=== PATIENT | female | born 2000 | race Caucasian/White ===

== ENCOUNTER 2024-03-21 14:55 | Emergency (ER) | payer OTHER ==
--- OUTSIDE RECORDS SUMMARY | 2024-03-21 14:58 | XMS REPORT | Continuity of Care Document ---
Author Name Unknown Address [address] [facility] [address] [place] [address] [facility] Address [address] [facility] [address] [place] [address] Care Team Providers Care Journeyman Pipe Fitter Name Role Phone HALEY STEPHENS Primary Care Physician SOLOMON Martinez Attending Clinician SOLOMON Flores Attending Clinician HALEY Morris Attending Clinician Unavailable SERGIO CHEATHAM Attending Clinician UnavailHaley Fernandez Attending Clinician [phone] Doctor Unassigned, [facility] Attending Clinician U Carmelo Nguyen Attending Clinician Unavailable ANIA GUILLEN Attending Clinician Ania Reno Attending Clinician + Sergio Taylor Attending Clinician Doctor Unassigned, [facility] Attending Clinician U Haley Briec Attending Clinician [phone] EDEL SMITH Attending Clinician Unavailable Edel Dickey Attending Clinician [phone] Carmelo Padilla Attending Clinician Unavailable Kelly Guadarrama Attending Clinician Unavailable Mor Abad Attending Clinician Unavailable Payers Payer Name Policy Type Policy Number Effective Date Expirati on Date Source UMR [id number] 2023 00:00:00 [facility] [id number] 2022 00:00:00 Problems Condition Name Condition Details Condition Category Status Onset Date Resolution Date Last Treatment Date Treating Clinician Comments Source Rhinorrhea Rhinorrhea Disease Active 2022-06 0-06 00:00: 00 [facility] Environmen remedios allergies Environmen remedios allergies Disease Active 2022-06 0-06 00:00: 00 [facility] Acute cough Acute cough Disease Active 2022-06 0-06 00:00: 00 [facility] Acute cough Acute cough Disease Active 2022-06 0-06 00:00: 00 [facility] Hypothyroi dism due to Ramirez' s thyroiditi s Hypothyroi dism due to Ramirez' s thyroiditi s Disease Active 3-16 00:00: 00 [facility] Anxiety with depression Anxiety with depression Disease Active 2- 00:00: 00 [facility] Problem Condition [facility] Allergies, Adverse Reactions, Alerts Allergy Name Allergy Type Status Severity Reaction(s) Onset Date Inactive Date Treating Clinician Comments Source NO KNOWN ALLERGIE S Drug Class Active [facility] Social History Social Habit Start Date Stop Date Quantity Comments Source [facility] of tobacco use Cigarette Smoker [facility] History of Social function 2024-01-29 00:00:00 2024-01-29 00:00:00 [facility] Tobacco use and exposure 2024-01-29 00:00:00 2024-01-29 00:00:00 Smokeless tobacco non-user [facility] Alcoholic beverage intake 2024-01-29 00:00:00 2024-01-29 00:00:00 Current drinker of alcohol (finding) [facility] Alcohol intake 2022-08-23 00:00:00 2022-08-23 00:00:00 Current drinker of alcohol (finding) [facility] Exposure to SARS-CoV-2 (event) 2022-08-07 00:00:00 2022-08-17 10:27:00 Not sure [facility] Tobacco Comment 2022-07-19 00:00:00 2022-07-19 00:00:00 Vaping daily [facility] Alcohol Comment 2022-07-19 00:00:00 2022-07-19 00:00:00 on holidays [facility] Sex assigned at 2001 00:00:00 2000 00:00:00 [facility] Smoking Status Start Date Stop Date Source Tobacco smoking consumption unknown [facility] Never smoked tobacco [facility] Occasional tobacco smoker 2023-12-05 00:00:00 [facility] Smokes tobacco daily 2022-07-19 00:00:00 [facility] Medications Ordered Medication Name Filled Medication Name Start Date Stop Date Current Medication? Ordering Clinician Indication Dosage Frequency Signature (SIG) Comments Components Source levothyroxi ne 50 mcg tablet 01-29 00:00: 00 Yes [id number] 50ug Take 1 tablet by mouth every morning. [facility] busPIRone 5 mg tablet 01-28 00:00: 00 Yes [id number] 5mg Take 1 tablet by mouth 2 (two) times daily as needed (anxiety). [facility] etonogestre L (NEXPLANON) 68 mg implant 12-04 08:47: 05 01-28 00:00 :00 No 68mg 68 mg by Subdermal route once now. [facility] SERTraline 50 mg tablet 08-14 00:00: 00 01-28 00:00 :00 No [id number] 50mg Take 1 tablet by mouth at bedtime. [facility] levothyroxi ne 50 mcg tablet 08-14 00:00: 00 01-28 00:00 :00 No [id number] 50ug TAKE ONE (1) TABLET(S) BY MOUTH EVERY MORNING. [facility] levothyroxi ne 50 mcg tablet 2022-06 00:00: 00 08-14 00:00 :00 No [id number] 50ug TAKE ONE (1) TABLET(S) BY MOUTH EVERY MORNING. [facility] methylPREDN ISolone acetate (DEPO-MEDRO L) injection 80 mg 2022-06 0- 20:45: 00 03-15 20:02 :00 No [id number] 80mg [facility] cetirizine (ZYRTEC) 10 mg tablet 2022-06 0-06 00:00: 00 Yes [id number] 10mg Take 1 tablet by mouth in the morning. [facility] benzonatate 200 mg capsule 2022-06 0-06 00:00: 00 03-23 04:59 :00 No [id number] 200mg Take 1 capsule by mouth 3 (three) times daily as needed for Cough for up to 7 days. [facility] busPIRone 5 mg tablet 08-17 00:00: 00 Yes [id number] 5mg Take 1 tablet by mouth 2 (two) times daily as needed (anxiety). [facility] SERTraline (ZOLOFT) 50 mg tablet 08-17 00:00: 00 08-14 00:00 :00 No [id number] 50mg Take 1 tablet by mouth in the morning. Take 1/2 tab po daily x 1 week, then increase to 1 tab po daily [facility] levothyroxi ne 50 mcg tablet 08-17 00:00: 00 06-04 00:00 :00 No [id number] 50ug Take 1 tablet by mouth every morning. [facility] etonogestre L (NEXPLANON) 68 mg implant 07-19 13:49: 01 Yes 68mg 68 mg by Subdermal route once now. [facility] SERTraline (ZOLOFT) 50 mg tablet 07-19 00:00: 00 08-17 00:00 :00 No [id number] Take 1/2 tab po daily x 1 week, then increase to 1 tab po daily [facility] busPIRone 5 mg tablet 07-19 00:00: 00 08-17 00:00 :00 No [id number] 5mg Take 1 tablet by mouth 2 (two) times daily as needed (anxiety). [facility] Immunizations Ordered Immunization Name Filled Immunization Name Date Status Comments Source HPV9 2019-01-05 00:00:00 Completed Meningococcal Polysaccharide (groups A, C, Y and W-135) conjugate vaccine (MCV4P) 2018-10-22 00:00:00 Completed Influenza Virus Vaccine Quad .5 mL IM 6+ MO (FLUZONE/FLULAVAL/FL UARIX) 2018-04-18 00:00:00 Completed Influenza Virus Vaccine Quad IM Multi-dose 6+ MO 2017-05-03 00:00:00 Completed HPV 2014-01-20 00:00:00 Completed Meningococcal Vaccine 2014-01-20 00:00:00 Completed TDAP 2014-01-20 00:00:00 Completed Varicella (varivax)(chicken pox) 2014-01-20 00:00:00 Completed DTaP, Unspecified Formulation 2006-02-26 00:00:00 Completed HEPATITIS A 2006-02-26 00:00:00 Completed MMR 2006-02-26 00:00:00 Completed IPV 2006-02-26 00:00:00 Completed HEPATITIS A 2005-03-28 00:00:00 Completed DTaP, Unspecified Formulation 2003-03-19 00:00:00 Completed HIB 4 Dose Schedule 2003-03-19 00:00:00 Completed Pneumococcal 7 Conjugate, PCV7 (Prevnar7) 2003-03-19 00:00:00 Completed MMR 2003-03-19 00:00:00 Completed Varicella (varivax)(chicken pox) 2003-03-19 00:00:00 Completed Pneumococcal 7 Conjugate, PCV7 (Prevnar7) 2002-10-27 00:00:00 Completed DTaP, Unspecified Formulation 2002-07-17 00:00:00 Completed [facility] Hep B, Adol or Pedi Dosage 2002-07-17 00:00:00 Completed HIB 4 Dose Schedule 2002-07-17 00:00:00 Completed Pneumococcal 7 Conjugate, PCV7 (Prevnar7) 2002-07-17 00:00:00 Completed IPV 2002-07-17 00:00:00 Completed DTaP, Unspecified Formulation 2002-05-21 00:00:00 Completed HIB 4 Dose Schedule 2002-05-21 00:00:00 Completed Pneumococcal 7 Conjugate, PCV7 (Prevnar7) 2002-05-21 00:00:00 Completed IPV 2002-05-21 00:00:00 Completed DTaP, Unspecified Formulation 2002-03-18 00:00:00 Completed Hep B, Adol or Pedi Dosage 2002-03-18 00:00:00 Completed HIB 4 Dose Schedule 2002-03-18 00:00:00 Completed IPV 2002-03-18 00:00:00 Completed Hep B, Adol or Pedi Dosage 2002-01-14 00:00:00 Completed DTaP, Unspecified Formulation Unknown Completed [facility] Influenza Virus Vaccine Quad IM Multi-dose 6+ MO Unknown Completed [facility] Influenza Virus Vaccine Quad .5 mL IM 6+ MO (FLUZONE/FLULAVAL/FL UARIX) Unknown Completed [facility] HEPATITIS A Unknown Completed [facility] Hep B, Adol or Pedi Dosage Unknown Completed [facility] HIB 4 Dose Schedule Unknown Completed [facility] HPV Unknown Completed [facility] HPV9 Unknown Completed [facility] Meningococcal Polysaccharide (groups A, C, Y and W-135) conjugate vaccine (MCV4P) Unknown Completed [facility] Pneumococcal 7 Conjugate, PCV7 (Prevnar7) Unknown Completed [facility] Meningococcal Vaccine Unknown Completed [facility] MMR Unknown Completed [facility] IPV Unknown Completed [facility] TDAP Unknown Completed [facility] Varicella (varivax)(chicken pox) Unknown Completed [facility] DTaP, Unspecified Formulation Unknown Completed [facility] Influenza Virus Vaccine Quad IM Multi-dose 6+ MO Unknown Completed [facility] Influenza Virus Vaccine Quad .5 mL IM 6+ MO (FLUZONE/FLULAVAL/FL UARIX) Unknown Completed [facility] HEPATITIS A Unknown Completed [facility] Hep B, Adol or Pedi Dosage Unknown Completed [facility] HIB 4 Dose Schedule Unknown Completed [facility] HPV Unknown Completed [facility] HPV9 Unknown Completed [facility] Meningococcal Polysaccharide (groups A, C, Y and W-135) conjugate vaccine (MCV4P) Unknown Completed [facility] Pneumococcal 7 Conjugate, PCV7 (Prevnar7) Unknown Completed [facility] Meningococcal Vaccine Unknown Completed [facility] MMR Unknown Completed [facility] IPV Unknown Completed [facility] TDAP Unknown Completed [facility] Varicella (varivax)(chicken pox) Unknown Completed [facility] DTaP, Unspecified Formulation Unknown Completed [facility] Influenza Virus Vaccine Quad IM Multi-dose 6+ MO Unknown Completed [facility] Influenza Virus Vaccine Quad .5 mL IM 6+ MO (FLUZONE/FLULAVAL/FL UARIX) Unknown Completed [facility] HEPATITIS A Unknown Completed [facility] Hep B, Adol or Pedi Dosage Unknown Completed [facility] HIB 4 Dose Schedule Unknown Completed [facility] HPV Unknown Completed [facility] HPV9 Unknown Completed [facility] Meningococcal Polysaccharide (groups A, C, Y and W-135) conjugate vaccine (MCV4P) Unknown Completed [facility] Pneumococcal 7 Conjugate, PCV7 (Prevnar7) Unknown Completed [facility] Meningococcal Vaccine Unknown Completed [facility] MMR Unknown Completed [facility] IPV Unknown Completed [facility] TDAP Unknown Completed [facility] Varicella (varivax)(chicken pox) Unknown Completed [facility] DTaP, Unspecified Formulation Unknown Completed [facility] Influenza Virus Vaccine Quad IM Multi-dose 6+ MO Unknown Completed [facility] Influenza Virus Vaccine Quad .5 mL IM 6+ MO (FLUZONE/FLULAVAL/FL UARIX) Unknown Completed [facility] HEPATITIS A Unknown Completed [facility] Hep B, Adol or Pedi Dosage Unknown Completed [facility] HIB 4 Dose Schedule Unknown Completed [facility] HPV Unknown Completed [facility] HPV9 Unknown Completed [facility] Meningococcal Polysaccharide (groups A, C, Y and W-135) conjugate vaccine (MCV4P) Unknown Completed [facility] Pneumococcal 7 Conjugate, PCV7 (Prevnar7) Unknown Completed [facility] Meningococcal Vaccine Unknown Completed [facility] MMR Unknown Completed [facility] IPV Unknown Completed [facility] TDAP Unknown Completed [facility] Varicella (varivax)(chicken pox) Unknown Completed [facility] DTaP, Unspecified Formulation Unknown Completed [facility] Influenza Virus Vaccine Quad IM Multi-dose 6+ MO Unknown Completed [facility] Influenza Virus Vaccine Quad .5 mL IM 6+ MO (FLUZONE/FLULAVAL/FL UARIX) Unknown Completed [facility]PATITIS A [facility], Adol or Pedi Dosage Unknown Completed [facility] HIB 4 Dose Schedule Unknown Completed [facility] HPV Unknown Completed [facility] HPV9 Unknown Completed [facility] Meningococcal Polysaccharide (groups A, C, Y and W-135) conjugate vaccine (MCV4P) Unknown Completed [facility] Pneumococcal 7 Conjugate, PCV7 (Prevnar7) Unknown Completed [facility] Meningococcal Vaccine Unknown Completed [facility] MMR Unknown Completed [facility] IPV Unknown Completed [facility] TDAP Unknown Completed [facility] Varicella (varivax)(chicken pox) Unknown Completed [facility] DTaP, Unspecified Formulation Unknown Completed [facility] Influenza Virus Vaccine Quad IM Multi-dose 6+ MO Unknown Completed [facility] Influenza Virus Vaccine Quad .5 mL IM 6+ MO (FLUZONE/FLULAVAL/FL UARIX) Unknown Completed [facility] HEPATITIS A Unknown Completed [facility] Hep B, Adol or Pedi Dosage Unknown Completed [facility] HIB 4 Dose Schedule Unknown Completed [facility] HPV Unknown Completed [facility] HPV9 Unknown Completed [facility] Meningococcal Polysaccharide (groups A, C, Y and W-135) conjugate vaccine (MCV4P) Unknown Completed [facility] Pneumococcal 7 Conjugate, PCV7 (Prevnar7) Unknown Completed [facility] Meningococcal Vaccine Unknown Completed [facility] MMR Unknown Completed [facility] IPV Unknown Completed [facility] TDAP Unknown Completed [facility] Varicella (varivax)(chicken pox) Unknown Completed [facility] DTaP, Unspecified Formulation Unknown Completed [facility] Influenza Virus Vaccine Quad IM Multi-dose 6+ MO Unknown Completed [facility] Influenza Virus Vaccine Quad .5 mL IM 6+ MO (FLUZONE/FLULAVAL/FL UARIX) Unknown Completed [facility] HEPATITIS A Unknown Completed [facility] Hep B, Adol or Pedi Dosage Unknown Completed [facility] HIB 4 Dose Schedule Unknown Completed [facility] HPV Unknown Completed [facility] HPV9 Unknown Completed [facility] Meningococcal Polysaccharide (groups A, C, Y and W-135) conjugate vaccine (MCV4P) Unknown Completed [facility] Pneumococcal 7 Conjugate, PCV7 (Prevnar7) Unknown Completed [facility] Meningococcal Vaccine Unknown Completed [facility] MMR Unknown Completed [facility] IPV Unknown Completed [facility] TDAP Unknown Completed [facility] Varicella (varivax)(chicken pox) Unknown Completed [facility] Vital Signs Vital Name Observation Time Observation Value Comments S ource Systolic blood pressure 2024-01-29 13:55:00 104 mm[Hg] [facility] Diastolic blood pressure 2024-01-29 13:55:00 70 mm[Hg] [facility] Heart rate 2024-01-29 13:54:00 83 /min Unive [facility] Body height 2024-01-29 13:54:00 167.6 cm [facility] Body weight 2024-01-29 13:54:00 101.152 kg [facility] BMI 2024-01-29 13:54:00 35.99 kg/m2 [facility] Oxygen saturation in Arterial blood by Pulse oximetry 2024-01-29 13:54:00 100 /min [facility] Systolic blood pressure 2023-12-27 15:19:00 97 mm[Hg] [facility] Diastolic blood pressure 2023-12-27 15:19:00 66 mm[Hg] [facility] Heart rate 2023-12-27 15:19:00 92 /min Unive [facility] Body height 2023-12-27 15:19:00 167.6 cm [facility] Body weight 2023-12-27 15:19:00 99.927 kg [facility] BMI 2023-12-27 15:19:00 35.56 kg/m2 [facility] Systolic blood pressure 2023-12-05 13:48:00 97 mm[Hg] [facility] Diastolic blood pressure 2023-12-05 13:48:00 66 mm[Hg] [facility] Heart rate 2023-12-05 13:48:00 82 /min Unive [facility] Body height 2023-12-05 13:48:00 167.6 cm [facility] Body weight 2023-12-05 13:48:00 96.616 kg [facility] BMI 2023-12-05 13:48:00 34.38 kg/m2 [facility] Systolic blood pressure 2023-03-15 19:31:00 101 mm[Hg] [facility] Diastolic blood pressure 2023-03-15 19:31:00 64 mm[Hg] [facility] Heart rate 2023-03-15 19:31:00 81 /min Un[facility] Body temperature 2023-03-15 19:31:00 37.17 Laura [facility] Body height 2023-03-15 19:31:00 167.6 cm [facility] Body weight 2023-03-15 19:31:00 91.173 kg [facility] BMI 2023-03-15 19:31:00 32.44 kg/m2 [facility] Oxygen saturation in Arterial blood by Pulse oximetry 2023-03-15 19:31:00 100 /min [facility] Systolic blood pressure 2022-08-17 16:34:00 99 mm[Hg] [facility] Diastolic blood pressure 2022-08-17 16:34:00 66 mm[Hg] [facility] Heart rate 2022-08-17 16:34:00 89 /min Un[facility] Body temperature 2022-08-17 16:34:00 36.78 Laura [facility] Body height 2022-08-17 16:34:00 [facility] 2022-08-17 16:34:00 87.091 kg [facility] BMI 2022-08-17 16:34:00 30.99 kg/m2 [facility] Systolic blood pressure 2022-07-19 19:36:00 106 mm[Hg] [facility] Diastolic blood pressure 2022-07-19 19:36:00 73 mm[Hg] [facility] Heart rate 2022-07-19 19:36:00 86 /min Un[facility] Body temperature 2022-07-19 19:36:00 36.67 Laura [facility] Body height 2022-07-19 19:36:00 167.6 cm [facility] Body weight 2022-07-19 19:36:00 87.998 kg [facility] BMI 2022-07-19 19:36:00 31.31 kg/m2 [facility] Oxygen saturation in Arterial blood by Pulse oximetry 2022-07-19 19:36:00 98 /min [facility] Procedures Procedure Date / Time Performed Performing Clinicia n Source POCT TEST 2024-01-29 00:00:00 Haley Stephens [facility] FREE T4 2022-08-17 17:24:00 Haley Stephens [facility] POCT TEST 2022-07-19 20:26:00 Haley Stephens [facility] ASSIGNMENT OF BENEFITS 2022-07-19 19:27:25 Docto r Unassigned, [facility] Encounters Start Date/Time End Date/Time Encounter Type Admission Type Attending Clinicians Care Facility Care Department Encounter ID Source 2024-04-02 10:00:00 2024-04-02 10:00:00 Outpatient R CHAU S, SOLOMON CHAU S, SOLOMON [facility] [id number] [facility] 2024-03-09 00:00:00 2024-03-12 14:35:04 Patient Secure Msg Haley Stephens [facility] [id number] 350.1.13.10 [id number] [id number] [facility] 2024-01-31 00:00:00 2024-01-31 11:31:57 Patient Secure Msg Doctor Unassigned, [facility] Doctor Unassigned, [facility] [id number] 350.1.13.10 [id number] [id number] [facility] 2024-01-30 00:00:00 2024-01-30 09:12:30 Patient Secure Msg Doctor Unassigned, [facility] Doctor Unassigned, [facility] 1..840.114 350.1.13.10 4.2.7.2.686 [id number] [facility] 2024-01-30 00:00:00 2024-01-30 07:45:07 Telephone Haley Stephens [facility] 1..840.114 350.1.13.10 4.2.7.2.686 [id number] [facility] 2024-01-29 10:30:00 2024-01-29 10:45:00 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 1..840.114 350.1.13.10 4.2.7.2.686 [id number] [facility] 2024-01-29 09:00:00 2024-01-29 09:49:03 Outpatient R HALEY STEPHENS [facility] [id number] [facility] 2024-01-29 09:00:00 2024-01-29 09:49:03 Office Visit Haley Stephens [facility] 1..840.114 350.1.13.10 4.2.7.2.686 [id number] [facility] 2023-12-27 10:00:00 2023-12-27 10:43:10 Outpatient R ANIA GUILLEN [facility] [id number] [facility] 2023-12-27 10:00:00 2023-12-27 10:43:10 Office Visit Ania Guillen [facility] 1.114 350.1.13.10 4.2.7.2.686 [id number] [facility] 2023-12-05 08:40:00 2023-12-05 09:17:09 Outpatient R SERGIO CHEATHAM [facility] [id number] [facility] 2023-12-05 08:40:00 2023-12-05 09:17:09 Office Visit Sergio Cheatham [facility] 1.114 350.1.13.10 4.2.7.2.686 [id number] [facility] 2023-09-12 14:00:00 2023-09-12 14:00:00 Outpatient R HALEY STEPHENS [facility] [id number] [facility] 2023-08-15 00:00:00 2023-08-15 00:00:00 Patient Secure Msg Doctor Unassigned, [facility] 1.84.114 350.1.13.10 4.2.7.2.686 [id number] [facility] 2023-08-07 00:00:00 2023-08-07 00:00:00 Refill Jose Haley A [facility] 1.84.114 350.1.13.10 4.2.7.2.686 [id number] [facility] 2023-05-31 00:00:00 2023-05-31 00:00:00 Refill Haley Stephens [facility] [id number] 350.1.13.10 4.2.7.2.686 [id number] [facility] 2023-03-15 14:30:00 2023-03-15 15:09:25 Outpatient R EDEL SMITH [facility] [id number] [facility] 2023-03-15 14:30:00 2023-03-15 15:09:25 [facility] 1.84.114 350.1.13.10 4.2.7.2.686 [id number] [facility] 2023-03-15 00:00:00 2023-03-15 00:00:00 Letter (Out) Edel Smith [facility] [facility] 1.84.114 350.1.13.10 4.2.7.2.686 [id number] [facility] 2022-10-17 08:30:00 2022-10-17 08:30:00 Outpatient R HALEY STEPHENS [facility] [place] [id number] [facility] 2022-09-01 00:00:00 2022-09-01 00:00:00 Patient Secure Msg Doctor Unassigned, [employer] [facility] 1.84.114 350.1.13.10 4.2.7.2.686 [id number] [facility] 2022-08-17 11:15:00 2022-08-17 11:34:47 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686 [id number] [facility] 2022-08-16 12:30:00 2022-08-16 12:30:00 Outpatient R HALEY STEPHENS [facility] [place] [id number] [facility] 2022-08-14 08:30:00 2022-08-14 09:08:10 Outpatient R HALEY STEPHENS [facility] [place] [id number] [facility] 2022-08-14 08:30:00 2022-08-14 08:45:00 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, Carmelo Domínguezcheri [facility] 1..840.114 350.1.13.10 4.2.7.2.686 [id number] [facility] 2022-07-19 13:30:00 2022-07-19 14:25:44 Office Visit Jose [facility] 1..840.114 350.1.13.10 4.2.7.2.686 [id number] [facility] 2022-07-19 13:30:00 2022-07-19 14:25:44 Outpatient R HALEY STEPHENS [facility] [place] [id number] [facility] 2022-07-19 00:00:00 2022-07-19 00:00:00 Orders Only Doctor Unassigned, [facility] 1..840.114 350.1.13.10 4.2.7.2.686 [id number] [facility] 2019-12-15 06:49:00 2019-12-15 07:25:00 Departed Emergency [facility] [id number] [facility] 2019-12-15 06:49:00 2019-12-15 06:49:00 Emergency ER Kelly Guadarrama STLSJB STLSJB [id number] [facility] 2019-04-25 13:08:00 2019-04-25 14:14:00 Emergency ER Mor Abad STLSJB STLSJB [id number] [facility] Results Test Description Test Time Test Comments Results Result Co [id number]:10:21* Test Item Value Reference Range Interpretation Comme nts FREE T4 (test code = 5804188218) 0.85 See_Comment [Automated messa ge] The system which generated this result transmitted reference range: 0.78 - 2.20 ng/dL:. The reference range was not used to interpret this result as normal/abnormal. Lab Interpretation (test code = 94214-4) Normal [facility] [id number] 20:26:00* Test Item Value Reference Range Interpretation Comme nts POCT PREG (test code = 1605) Negative On board controls acceptable with C Line (test code = 3574) Yes POCT PREG LOT # (test code = 3575) POCT PREG TEST DATE ( test code = 3576) [facility] [id number] 20:26:00* Test Item Value Reference Range Interpretation Comme nts POCT PREG (test code = 1605) Negative On board controls acceptable with C Line (test code = 3574) Yes POCT PREG LOT # (test code = 3575) POCT PREG TEST DATE ( test code = 3576) [facility] Notes Date/Time Note Provider Source 2024-03-12 09:27:44 Buspar is category B. May take as needed. Recommend following up with OB for evaluation/tx. [facility] 2024-01-29 10:30:00 Images from the original note were not included. Venipuncture collection performed by clean technique on the left anticubitus. Total of 1 attempts were made. Slight pressure and a bandage/dressing were applied to the site(s). The patient experienced no complications. The following specimens were processed according to instructions and sent to [facility] laboratories per lab order on today: LT BLUE SST 3 RED LAV 1 PPT DK GREEN (LiHep) 1 ligt green 1dark green DK GREEN (SodH) GARCIA DK BLUE (K2) DK BLUE (S) ACD Blood Culture NIPT/NTD [facility] 2023-08-15 14:36:52 Attempted to contact patient, left message on voicemail notifying patient she will need to make appointment for additional refills, will also send my chart message. [employer] Elizabeth Hagen MA [facility] 2023-08-15 14:03:57 ALO 1 year ago. Needs to follow-up for refills/fasting labs [employer] [facility] 2023-08-07 16:49:49 Jonathan Robbins is a 22 year old female Pt calling to f/u with med refill request. Please advise. [phone] (home) [employer] Jen Liang [facility] 2023-08-07 14:07:52 Images from the original note were not included. Notes: 06/04/23, 08/17/22 Last Ref[facility]: [facility] [place] [place] [facility] [address] [facility] [address] Recent Visits Date Type Provider Dept 03/15/23 Office Visit Edel Smith FNP [facility] 08/17/22 Office Visit Haley Stephens PA [facility] 07/19/22 Office Visit Haley Stephens PA [facility] Showing recent visits within past 540 days with a meds authorizing provider and meeting all other requirements Future Appointments No visits were found meeting these conditions. Showing future appointments within next 150 days with a meds authorizing provider and meeting all other requirements Name from pharmacy: Sertraline 50mg Tablet Will file in chart as: SERTRALINE 50 mg tablet Sig: TAKE ONE-HALF (1/2) TABLET(S) BY MOUTH DAILY FOR ONE WEEK THEN INCREASE TO ONE (1) TABLET(S) DAILY. Disp: 90 tablet (Pharmacy requested: 90 Each) Refills: 1 (Pharmacy requested: Not specified) Start: 08/07/2023 Class: eRX For: Anxiety with depression Last ordered: 11 months ago (08/17/2022) by JODIE Jaimes Last refill: 04/14/2023 Rx #: [id number] Psychiatry: Antidepressants Ivtyiw6108/07/2023 10:57 AM Protocol Details Manual Review: Verify no changes in dose in the last 3 months Valid encounter within last 12 months Name from pharmacy: Levothyroxine 50mcg Tablet Will file in chart as: LEVOTHYROXINE 50 mcg tablet Sig: TAKE ONE (1) TABLET(S) BY MOUTH EVERY MORNING. Disp: 20 tablet (Pharmacy requested: 20 Each) Refills: 0 (Pharmacy requested: Not specified) Start: 08/07/2023 Class: eRX For: Hypothyroidism, unspecified type Last ordered: 2 months ago (06/04/2023) by JODIE Jaimes Last refill: 06/04/2023 Rx #: [id number] Endocrinology: Hypothyroid Agents Cvesfq4408/07/2023 10:57 AM Protocol Details Manual Review: ENT providers forward refill request to PCP. TSH in normal range and within 360 days Valid encounter within last 12 months To be filled at: [facility] [place], [place] - [address] [place] [address] & [address] N[address] NA Ad[place] MA [facility]
--- NOTE | 2024-03-21 16:22 | RAD REPORT ---
EXAMINATION: Transvaginal OB COMPARISON: None. HISTORY: Abd cramping, ;Vaginal bleeding TECHNIQUE: Real-time ultrasound was performed through the pelvis. A transvaginal scan was performed t o better visualize the intrauterine contents and adnexa. FINDINGS: There is a single living intrauterine . Cardiac activity measured 117 BPM. Small inferior subchorionic bleed measuring 6 mm. Both ovaries are visualized and appear unremarkable. There is no free fluid in the cul-de-sac. Measurements and Calculations: [place] rump length 4 mm, consistent with a sonographic age of 6 weeks, 2 days. Estimated date of deli very is 11/12/2024 IMPRESSION: Single living intrauterine , with a composite sonographic age of 6 weeks, 2 days. 6 mm subchorionic bleed noted.
[2024-03-21 16:57] LABS: Absolute Eosinophils 0.1 K/uL (0-0.5); Absolute Lymphocytes (CBC) 1.4 K/uL (0.7-4.9); Absolute Monocytes 0.3 K/uL (0.1-1.3); Absolute Neutrophil 5.2 K/uL (1.8-8.0); Basophils % 0.5 % (0-1.3); Eosinophils % 1.9 % (0-4.4); Hematocrit 33.8 % (36.0-45.0); Hemoglobin 10.9 g/dL (12.0-15.0); Lymphocytes % 20.2 % (15.3-44.8); MCH 25.1 pg (27.0-35.0); MCHC 32.3 g/dL (32.0-36.0); MCV 77.8 fL (80-100); MPV 9.6 fL (7.6-11.3); Monocytes % 4.7 % (3.3-12.3); Neutrophils % 72.7 % (41.7-73.7); Platelets 249 thou/uL (152-406); RBC Red Blood Cell Count 4.35 M/uL (3.86-4.86); Red Cell Distribution Width 15.6 % (12.1-15.2)
[2024-03-21 16:59] LABS: Specific Gravity < 1.005 (1.005-1.030); Urine Bilirubin NEGATIVE (Negative); Urine Blood Negative (Negative); Urine Clarity Clear (Clear); Urine Color Colorless (Yellow); Urine Glucose NEGATIVE (Negative); Urine Ketones NEGATIVE (Negative); Urine Microscopic Reflex YN NO UMIC; Urine Nitrite NEGATIVE (Negative); Urine Protein NEGATIVE (Negative); Urine Urobilinogen Normal (Normal); Urine pH 5.5 (5.0-7.0)
[2024-03-21 17:01] LABS: Specific Gravity < 1.005 (1.005-1.030)
[2024-03-21 17:18] LABS: Anion Gap 9.7 mEq/L (5.0-15.0); Potassium 3.7 mEq/L (3.5-5.1)
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
[2024-03-21 21:24] VITALS: TEMP 97.8; O2SAT 99
[2024-03-21 21:26] VITALS: BP 112/78
== END 2024-03-21 17:59 | disposition home or self-care (01) ==
LOC: ER 14:55
DX: O20.0 Threatened abortion (principal); Z3A.01 Less than 8 weeks gestation of pregnancy
CPT/HCPCS: 36415; 76817; 80048; 81003; 81025; 84702; 85025; 86900; 86901; 99283